=== PATIENT | female | born 1990 ===

== ENCOUNTER 2017-02-08 09:36 | Emergency (ER) | payer OTHER ==
[2017-02-08 09:41] VITALS: BP 121/57; PULSE 93; TEMP 96; BMI 26.4
[2017-02-08 09:46] VITALS: O2SAT 98
--- NOTE | 2017-02-08 10:02 | ED PDOC ---
Upper Extremity Pain/Injury Time Seen by Provider: 02/08/17 09:47 Chief Complaint (Nursing): Upper Extremity Problem/Injury History Per: Patient Onset/Duration Of Symptoms: Days (5) Current Symptoms Are (Timing): Still Present Quality: Aching Severity: Mild Pain Scale Rating Of: 3 Exacerbating Factor(s): Strenuous Use Of Affected Area Additional Complaint(s): Right hand pain x 5 days. 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 No trauma Past Medical History Vital Signs: Last Vital Signs Temp 96 F L 02/08/17 09:40 Pulse 93 H 02/08/17 09:40 Resp BP 121/57 L 02/08/17 09:40 Pulse Ox 98 02/08/17 09:44 - Medical History PMH: No Chronic Diseases - Family History Family History: States: Unknown Family Hx - Home Medications Home Medications: Ambulatory Orders Medication Instructions Recorded Naproxen [Naprosyn] 500 mg PO Q12H #20 tab 02/08/17 - Allergies Allergies/Adverse Reactions: Allergies Allergy/AdvReac Type Severity Reaction Status Date / Time No Known Allergies Allergy Verified 02/08/17 09:44 Review of Systems Musculoskeletal: Positive for: Hand Pain Neurological: Negative for: Weakness, Numbness Physical Exam - Physical Exam Appears: Positive for: Non-toxic, No Acute Distress Extremity: Positive for: Other (Right hand no swelling ecchymosis or deformity. Pain right thumb on opposistion to resistance and extension) Neurologic/Psych: Positive for: Alert, Oriented. Negative for: Motor/Sensory Deficits - ECG O2 Sat by Pulse Oximetry: 98 Disposition - Clinical Impression Clinical Impression: Hand sprain - Patient ED Disposition Is Patient to be Admitted: No Counseled Patient/Family Regarding: Studies Performed, Diagnosis, Need For Followup, Rx Given - Disposition Referrals: [facility] [Outside] Disposition: Routine/Home Disposition Time: 10:24 Condition: FAIR Prescriptions: Naproxen [Naprosyn] 500 mg PO Q12H #20 tab Instructions: Hand Sprain (ED) Forms: [facility] (Serbian)
--- NOTE | 2017-02-08 10:43 | RAD ---
PROCEDURE: Right Hand Radiographs. HISTORY: pain COMPARISON: None. FINDINGS: BONES: No acute fracture or destructive bony lesion identified. JOINTS: Normal. No osteoarthritic changes. SOFT TISSUES: Normal. OTHER FINDINGS: None. IMPRESSION: Normal right hand radiographs.
== END 2017-02-08 10:42 | disposition home or self-care (01) ==
LOC: H.ER 09:36
DX: S63.91XA Sprain of unspecified part of right wrist and hand, initial encounter (principal); X50.9XXA Other and unspecified overexertion or strenuous movements or postures, initial encounter; Y99.0 Civilian activity done for income or pay